=== PATIENT | male | born 1990 | race Caucasian/White ===

== ENCOUNTER 2019-06-27 18:39 | Inpatient (IN) | payer OTHER ==
[~2019-06-27] VITALS: Ht 170.1 cm; Wt 69.1 kg
--- NOTE | ~2019-06-27 | EKG ---
[place], [place] ELECTROCARDIOGRAM REPORT NAME: SREE DAWSON UNIT #: [id number] ROOM: 426 DOCTOR: DIYA DRAFT REPORT BIRTHDATE: [birth year] [facility] Test Date: 2019-06-27 Test Time: 19:42:26 Pat Name: SREE DAWSON Department: Room: 426 Gender: M Supervisor Of Way: : 1990 Requested By: BHUMIKA PADILLA DNP Order Number: [id number] Reading MD: Lefty Godoy Measurements Intervals [place] Rate: 78 P: 41 KS: 126 QRS: -4 QRSD: 90 T: 28 QT: 379 QTc: 432 Interpretive Statements Sinus rhythm Probable left ventricular hypertrophy Baseline wander in lead(s) I,III,aVL,V2 No previous ECG available for comparison Electronically Signed On 06-29-2019 7:39:09 PST by Lefty Godoy CM:EKGRPT:ELECTROCARDIOGRAM REPORT [id number] BHUMIKA KEANE DRAFT REPORT BHUMIKA PADILLA DNP
[2019-06-27 18:43] VITALS: BP 127/88
[2019-06-27 19:28] LABS: BILIRUBIN NEGATIVE (NEGATIVE); BLOOD NEGATIVE (NEGATIVE); CLARITY CLEAR (CLEAR); COLOR YELLOW (YELLOW); GLUCOSE NEGATIVE (NEGATIVE); KETONE NEGATIVE (NEGATIVE); PH 6.5 (5.0-9.0); SPECIFIC GRAVITY <= 1.005 (1.005-1.030)
[2019-06-27 19:29] LABS: LEUKO ESTERASE NEGATIVE (NEGATIVE); NITRITE NEGATIVE (NEGATIVE); UROBILINOGEN 0.2 E.U./dl (0.2-1.0)
[2019-06-27 19:48] LABS: URINE AMPHETAMINES > 1000 (1000ng/ml); URINE BARBITURATES > 200 (200ng/ml); URINE BENZODIAZEPINES < 200 (200ng/ml); URINE CANNABINOIDS (THC) > 50 (50ng/ml); URINE COCAINE < 300 (300ng/ml); URINE METHADONE < 300 (300ng/ml); URINE OPIATES < 300 (300ng/ml)
[2019-06-27 19:50] LABS: BASO % 0.5 % (0.0-1.0); EOS # 0.1 10*3/uL (0.0-0.4); EOS % 1.2 % (1.0-4.0); HEMATOCRIT 40.8 % (42.0-52.0); HEMOGLOBIN 14.1 g/dl (14.0-18.0); LYMPH # 2.6 10*3/uL (1.3-4.4); LYMPH % 31.6 % (27.0-41.0); MEAN CELL VOLUME 90.7 fl (80.0-94.0); MEAN CORPUSCULAR HGB 31.3 pg (27.0-31.0); MEAN CORPUSCULAR HGB CONC 34.6 g/dl (33.0-37.0); MEAN PLATELET VOLUME 9.9 fl (9.6-12.3); MONO # 0.6 10*3/uL (0.1-1.0); MONO % 7.4 % (3.0-9.0); NEUT # 4.9 10*3/uL (2.3-7.9); NEUT % 59.1 % (47.0-73.0); PLATELET COUNT AUTOMATED 300 10*3/uL (130-400); RED CELL DISTRI WIDTH 11.8 % (0-14.5); WHITE BLOOD COUNT 8.3 10*3/uL (4.8-10.8)
[2019-06-27 19:53] LABS: URINE PHENCYCLIDINE < 25 (25ng/ml)
[2019-06-27 19:57] LABS: ACETAMINOPHEN (TYLENOL) 5.9 ug/ml (10-30); ALBUMIN 4.1 gm/dl (3.1-4.5); ALKALINE PHOSPHATASE 90 U/L (45-117); BUN 14 mg/dl (7-24); CHLORIDE 101 mmol/L (98-107); CREATININE 0.91 mg/dL (0.70-1.30); POTASSIUM 3.7 mmol/L (3.5-5.1); SGOT/AST 10 IU/L (3-35); SGPT/ALT 18 U/L (12-78); SODIUM 138 mmol/L (136-145); TOTAL PROTEIN 7.7 gm/dL (6.4-8.2)
[2019-06-27 20:01] LABS: ETHYL ALCOHOL < 3.0 mg/dl (<3); TROPONIN I < 0.015 ng/ml (<0.045)
[2019-06-27 20:25] VITALS: BP 126/84
[2019-06-27 20:30] VITALS: BP 113/81
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
--- NOTE | 2019-06-27 21:43 | NUR ---
PATIENT MEDICATED WITH ROBAXIN AND ZOFRAN FOR COMPLAINTS OF NAUSEA AND MUSCLE CRAMPS. WILL CHECK EFFECTIVENESS.
--- NOTE | 2019-06-27 22:23 | NUR ---
NICODERM PATCH PLACED ON LEFT SHOULDER BLADE.
--- NOTE | 2019-06-27 22:48 | NUR ---
PATIENT MEDICATED WITH VISTARIL FOR COMPLAINTS OF ANXIETY.
[2019-06-28] VITALS: BP 100/55
--- NOTE | 2019-06-28 04:00 | NUR ---
PATIENT SLEEPING, NO SIGNS OF DISTRESS. RESPIRATIONS EASY, NON LABORED. BED IN LOWEST POSITION CALL LIGHT WITHIN REACH. WILL CONTINUE TO MONTIOR.
[2019-06-28 08:00] VITALS: BP 98/56
--- NOTE | 2019-06-28 08:09 | NUR ---
RESTLESS IN BED. ANXIOUS ABOUT NOT BEING ABLE TO SMOKE. OFFERED ANOTHER PATCH BECAUSE PT STATES IT FELL OFF IN NIGHT. HE STATES HE WAS TOLD HE COULD HAVE THE INHALER. I CALLED PHARMACY THEY ARE OUT OF THEM UNTIL 11AM THIS AM. NOTIFIED PT. MEDICATED WITH ROBAXIN PO PER PRN ORDER, SEE EMAR. FOR MUSCLE ACHES. CALL LIGHT IN REACH. SEE SHIFT ASSESSMENT.
--- NOTE | 2019-06-28 08:10 | NUR ---
CALLED DR. HOLLEY AWARE PT ANXIOUS AND WANTS [facility] MEDICATION BUT STATES HE IS ALLERGIC TO SUBUTEX. CALL [facility] AND HAVE THEM COME SEE HIM AND ADMIT THEM.
--- NOTE | 2019-06-28 08:12 | NUR ---
CALLED MARGARET FROM [facility] SHE WILL COME U AND SEE PT.
--- NOTE | 2019-06-28 08:16 | NUR ---
GAVE PT NICOTINE PATCH HE IS UPSET ABOUT NOT BEING ABOUT TO SMOKE. ALSO [facility] UP TO SEE PT.
--- NOTE | 2019-06-28 09:05 | NUR ---
DR. HOLLEY IN TO SEE PT. PT STATES HE CAN'T STAY HERE BECAUSE CAN'T SMOKE AND NOT ABLE TO QUIT EVERYTHING AT ONCE. HE WILL CALL TO SEE ABOUT GETTING IN ANOTHER PROGRAM PER PT. MEDICATED WITH ATIVAN PO FOR ANXIETY AND LIBRIUM PER ORDER FOR WITHDRAWAL. CALL LIGHT IN REACH.
--- NOTE | 2019-06-28 11:18 | NUR ---
PT WANTING NICOTROL INHALER, CALLED PHARMACY NOT IN YET. MADE PT AWARE.
--- NOTE | 2019-06-28 12:25 | NUR ---
PT AMBULATORY OFF THE FLOOR. REFUSED TO SIGN AMA PAPER. HE WAS UPSET ABOUT NOT BEING ABLE TO SMOKE. HE STATES HE IS GONNA GO OUTSIDE AND SMOKE AND SIT IN LOBBY FOR 2 HOURS WAIT FOR HIS RIDE.
== END 2019-06-28 12:25 | disposition left against medical advice (07) | DRG 770 ==
LOC: ED 18:39 → EDHOLD 19:35 → 4E 19:35
PROVIDERS: Emergency Medicine; Nurse Practitioner Family; ADMIT Family Medicine
DX: F19.10 Other psychoactive substance abuse, uncomplicated (principal); F13.20 Sedative, hypnotic or anxiolytic dependence, uncomplicated; F15.10 Other stimulant abuse, uncomplicated; F12.10 Cannabis abuse, uncomplicated; F41.9 Anxiety disorder, unspecified; F32.9 Major depressive disorder, single episode, unspecified; F17.210 Nicotine dependence, cigarettes, uncomplicated; Z53.21 Procedure and treatment not carried out due to patient leaving prior to being seen by health care provider; Z88.8 Allergy status to other drugs, medicaments and biological substances; Z82.49 Family history of ischemic heart disease and other diseases of the circulatory system; Z84.89 Family history of other specified conditions; Z71.6 Tobacco abuse counseling; Z86.69 Personal history of other diseases of the nervous system and sense organs